=== PATIENT | female | born 1965 | race Caucasian/White ===

== ENCOUNTER → 2025-06-12 08:20 | Outpatient (REF) | payer OTHER, SELFPAY | LOC: RAD 08:20 | PROVIDERS: ATTENDING PHYSICIAN Family Medicine | DX: Z13.820 Encounter for screening for osteoporosis (principal); N95.1 Menopausal and female climacteric states | CPT/HCPCS: 77080 ==

== ENCOUNTER → 2025-06-18 13:37 | Outpatient (REF) | payer SELFPAY | LOC: HWRAD 13:37 | PROVIDERS: ATTENDING PHYSICIAN Family Medicine | DX: Z13.6 Encounter for screening for cardiovascular disorders (principal) | CPT/HCPCS: 75571 ==

== ENCOUNTER → 2025-07-03 15:17 | Outpatient (REF) | payer OTHER, SELFPAY | LOC: WDC 15:17 | PROVIDERS: ATTENDING PHYSICIAN Obstetrics & Gynecology; FAMILY PHYSICIAN Family Medicine | DX: Z12.31 Encounter for screening mammogram for malignant neoplasm of breast (principal) | CPT/HCPCS: 77063; 77067 ==